=== PATIENT | female | born 1995 | race Caucasian/White ===

== ENCOUNTER 2017-06-26 19:59 | Inpatient (IN) | payer OTHER, SELFPAY ==
[2017-06-26 20:14] VITALS: BMI 23.8
[2017-06-26] MEDS: Hydrocortisone Sod Succ/PF 250 mg/2 ml Vial SLOW IVP SCH (22:55)
[2017-06-27] MEDS: Hydrocortisone Sod Succ/PF 250 mg/2 ml Vial SLOW IVP SCH ×2 (05:45→13:16)
[2017-06-27] MEDS ORDERED: Acetaminophen 325 MG TAB PO PRN (18:24)
[2017-06-28 04:19] LABS: #Lymphocytes 1.2 thou/uL (1.20-3.40); #Monocytes 0.2 thou/uL (0.11-0.59); #Neutrophils 12.6 thou/uL (1.40-6.50); %Basophils 0.1 % (0.0-1.0); %Lymphocytes 8.8 % (28.0-48.0); %Monocytes 1.1 % (0.0-4.0); Hematocrit 40.7 % (36.0-47.0); Mean Platelet Volume 8.5 fL (7.4-10.4); Red Blood Cell (RBC) Count 4.67 mill/uL (4.00-5.20)
[2017-06-28 04:34] LABS: ALT (SGPT) 37 U/L (8-55); AST (SGOT) 15 U/L (5-30); Alkaline Phosphatase 49 U/L (40-150); Anion Gap 12 mmol/L (10-20); BUN (Urea Nitrogen) 7 mg/dL (8.4-21.0); Bilirubin, Total 0.3 mg/dL (0.2-1.2); Calc. Creatinine Clearance 158 mL/min (70-130); Calcium 9.9 mg/dL (7.8-10.44); Carbon Dioxide 22 mmol/L (22-29); Chloride 108 mmol/L (98-107); Estimated GFR-MDRD Greater than 90; Globulin 2.9 g/dL (2.4-3.5); Protein, Total 6.7 g/dL (6.0-8.3)
[2017-06-28] MEDS: Promethazine HCl 25 MG/ML VIAL SLOW IVP PRN ×2 (10:03→19:02)
[2017-06-28 21:08] LABS: Troponin I Less than 0.010 ng/mL (< 0.028)
--- NOTE | 2017-06-28 23:41 | PRG ---
DATE OF SERVICE: 06/27/2017 SUBJECTIVE: Ms. Saab is a pleasant 21-year-old female, presented with the acute MS exa cerbation. She reports of having noted some improvement in her numbness after starting IV steroids, she denies any noticeable side effects on steroids. She has noted increasing headaches and nausea. She denies chest pain, palpitation, fever or chills. PHYSICAL EXAMINATION: VITAL SIGNS: Blood pressure of 124/77, pulse of 71, temperature of 98, respirations of 18, O2 sats of 100% on room air. GENERAL: Well-developed, well-nourished female, in no apparent distress. RESPIRATORY: Clear to auscultation bilaterally. CARDIOVASCULAR: Regular rate and rhythm. NEUROLOGIC: Essentially unchanged when compared to yesterday. IMPRESSION: 1. Acute multiple sclerosis exacerbation. 2. Optic neuritis. 3. Ataxia. 4. Left-sided weakness. ASSESSMENT AND PLAN: Ms. Saab is a pleasant 21-year-old female, presented with the acu te multiple sclerosis exacerbation. She is undergoing IV Solu-Medrol therapy. She has noted some i mprovement. At this time, I will continue her on IV steroids. I will give her Tylenol as needed fo r headaches and Phenergan 12.5 mg IV every 6 to 8 hours as needed for nausea.
--- NOTE | 2017-06-28 23:45 | PRG ---
DATE OF SERVICE: 06/28/2017 SUBJECTIVE: Ms. Saab presented with the acute SD exacerbation. She has noted some improvement i n her strength. She had increasing nausea today that is likely due to her . This did get better with use of promethazine. PHYSICAL EXAMINATION: VITAL SIGNS: Blood pressure of 112/73, pulse of 78, temperature of 98.1, respirations 16, O2 sat 98 % on room air. GENERAL: Well-developed, well-nourished female in no apparent distress. RESPIRATORY: Clear to auscultation bilaterally. CARDIOVASCULAR: Regular rate and rhythm. There is some irregularity in the heartbeat with extra be at noted every third beat. NEUROLOGICAL: This is essentially unchanged. LABORATORY DATA: Labs are reviewed, which included CBC and CMP, significant for WBC of 14.0, otherw ise unremarkable. IMPRESSION: 1. Acute myocardial infarction exacerbation. 2. Optic neuritis. 3. Ataxia. 4. Left-sided weakness. 5. Palpitations. Ms. Saab is a pleasant 21-year-old female with 8 weeks , presented with an acut e myocardial infarction exacerbation, she is undergoing IV steroids with Solu-Medrol treatment witho ut any complications. She has noted episodes of palpitation and on auscultation, she had extra beat every third to fourth beat. For this reason I will obtain EKG and one set of troponin. I will lyndsey n to discharge her tomorrow after the IV steroids. I have discussed with her that after discharge, we will do one day of IV steroids while she is once a month. I will also refer her to Dr. Isai Cid as an outpatient for a second opinion for her treatment of multiple sclerosis.
--- NOTE | 2017-06-29 07:16 | HP ---
DATE OF SERVICE: 06/26/2017 REASON FOR ADMISSION: Multiple sclerosis exacerbation, optic neuritis, ataxia. HISTORY OF PRESENT ILLNESS: Ms. Saab is a pleasant 21-year-old female with history of multiple sclerosis, is being admitted for further treatment of multiple sclerosis exacerbation. She had presented to my clinic on 06/24 with a complaint of 2-week history of gradual decline in her vision in the right eye as well as left eye. She also had noted increasing difficulty with walking and balance. She also had noted numbness in both upper and lower extremities as well as weakness in her left thigh. According to her boyfriend, she has been dropping objects. She also has difficulty with walking and balance and had falls on several occasions. She is also having poor coordination and depth perception. She is also 8 weeks . For this reason, she was not started on any disease modifying therapy. As her symptoms were continued to get worse, I have decided to admit her to the [facility] for 3 days of IV steroids. I have discussed with the patient initially to be done as an outpatient, which was the initial plan; however, her PCP as well as the patient did not feel safe to be done at an infusion center, and for this reason, I am admitting her for infusion therapy in the hospital. PAST MEDICAL HISTORY: Significant for multiple sclerosis, history of optic neuritis. PAST SURGICAL HISTORY: Noncontributory. SOCIAL HISTORY: She denies smoking, alcohol use, or illicit drug use. She is single, but lives with her boyfriend. CURRENT MEDICATIONS: None. ALLERGIES: No known drug allergies. FAMILY HISTORY: Noncontributory. REVIEW OF SYSTEMS: As mentioned in the HPI, otherwise negative. PHYSICAL EXAMINATION: VITAL SIGNS: Blood pressure of 125/87, pulse of 91, temperature of 98.6, respirations of 18, O2 sats of 100% on room air. GENERAL: Well-developed, well-nourished female in no apparent distress. RESPIRATORY: Clear to auscultation bilaterally. CARDIOVASCULAR: Regular rate and rhythm. NEUROLOGIC: Mental status: The patient is awake, alert, oriented x3. Speech and language: Fluent speech. Cranial nerves: Pupils are 3 mm and reactive. She has a right RAPD. Her vision in the right eye is only to finger counting, on the left eye is 20/50. Extraocular muscles are intact. No nystagmus is noted. Face is symmetric with normal facial strength. Tongue and uvula are midline. Motor exam showed 4/5 strength in the left upper extremity and left lower extremity. Sensory: Diminished sensation to pinprick in both upper and lower extremities. Deep tendon reflexes, 3+ reflexes in both upper and lower extremities that is especially more brisk on the left upper extremity. Babinski : Plantar responses are extensors bilaterally. She has a positive Romero bilaterally. Romberg is positive. Coordination, there is a dysmetria noted on [id number]. Gait: Wide-based ataxic gait. IMPRESSION: 1. Multiple sclerosis exacerbation. 2. Optic neuritis. 3. Ataxia. 4. Left-sided weakness. ASSESSMENT AND PLAN: Ms. Saab is a pleasant 21-year-old female who presented with the worsening vision in her right eye, bilateral upper and lower extremity numbness, left-sided weakness, ataxia, and worsening vision in her right eye. She is noted to be in multiple sclerosis exacerbation. She is 8 weeks . For this reason, she cannot be started on any disease modifying therapy. At this time, I have admitted her for 3 days of IV Solu- Medrol to be given 250 mg every 6 hours. I will consult physical therapy for gait and strengthening evaluation and treatment. NAYAND
[2017-06-29 08:20] VITALS: TEMP 98
[2017-06-29 12:20] VITALS: BP 111/64
--- NOTE | 2017-06-30 05:33 | DIS ---
ADMISSION DATE: 06/26/2017 DISCHARGE DATE: 06/29/2017 ADMISSION DIAGNOSES: 1. Acute multiple sclerosis exacerbation. 2. Optic neuritis. 3. Ataxia. 4. Left-sided weakness. DISCHARGE DIAGNOSES: 1. Acute multiple sclerosis exacerbation, improving. 2. Optic neuritis, improving. 3. Ataxia, improving. 4. Left-sided weakness, improving. PROCEDURES DONE DURING ADMISSION: None. CONSULTATION DURING ADMISSION: Physical therapy. BRIEF HOSPITAL COURSE: Ms. Saab is a pleasant 21-year-old 8 week female with history of multiple sclerosis, presented with the acute worsening vision, left-sided weakness, difficulty with gait and balance and numbness in both upper and lower extremities. Please review my dictated H\T\P for the details. After being admitted to the hospital, the patient was started on IV Solu-Medrol 2 50 mg q.6 hours, which she received for a total of 8 doses. She had tolerated the Solu-Medrol well up until the last 2 doses when she started complaining of chest tightness and palpitations. We had received EKG twice which showed sinus rhythm with occasional PVCs. I had consulted physical therapy who had provided their services during this hospitalization. She had noted some improvement in her vision as well as her strength of the left side; however, she continued to have difficulty with gai t imbalance. I had planned to be discharged to home. She will follow up with my clinic in [facility]. She will be referred to Dr. Isai Cid as an outpatient for second opinion for underlying MS tr eatment. I have discussed with her at length about seeing a high risk rattle leak and squeak repairer for . I have also advised that she should take folic acid 2 mg on a daily basis as well as vitami n on daily basis. DISCHARGE PLANNING: Discharge the patient to home. CONDITION: Stable. ACTIVITY: Ad haley. Patient was given a wheelchair perception for avoiding falls as she lives by her self most of the time. DIET: Regular diet. DISCHARGE FOLLOWUP: Follow up with my clinic in 4 weeks. DISPOSITION: Discharge the patient to home.
--- NOTE | 2017-08-15 09:55 | EKG ---
Test Reason : Blood Pressure : / mmHG Vent. Rate : 061 BPM Atrial Rate : 061 BPM P-R Int : 122 ms QRS Dur : 088 ms QT Int : 528 ms P-R-T Axes : -02 095 050 degrees QTc Int : 531 ms Sinus rhythm with sinus arrhythmia with occasional Premature ventricular complexes Rightward axis Nonspecific T wave abnormality Prolonged QT Abnormal ECG When compared with ECG of 28-JUN-2017 20:24, (Unconfirmed) Nonspecific T wave abnormality has replaced inverted T waves in Anterior leads QT has lengthened Confirmed by DR. Vinh OLIVARES ([id number]) on 08/15/2017 9:54:54 AM Referred By: ARTURO Confirmed By:DR. Vinh OLIVARES
--- NOTE | 2017-08-15 09:55 | EKG ---
Test Reason : STAT Blood Pressure : / mmHG Vent. Rate : 070 BPM Atrial Rate : 070 BPM P-R Int : 132 ms QRS Dur : 086 ms QT Int : 380 ms P-R-T Axes : -04 099 020 degrees QTc Int : 410 ms Sinus rhythm with sinus arrhythmia with occasional Premature ventricular complexes Rightward axis T wave abnormality, consider anterior ischemia Abnormal ECG Confirmed by DR. Vinh OLIVARES ([id number]) on 08/15/2017 9:55:15 AM Referred By: RICKI THORNTON Confirmed By:DR. Vinh OLIVARES
== END 2017-06-29 17:34 | disposition home or self-care (01) | DRG 781 ==
LOC: T4-A 19:59
PROVIDERS: ADMIT Psychiatry & Neurology Neurology; ATTEND Psychiatry & Neurology Neurology
DX: O99.351 Diseases of the nervous system complicating pregnancy, first trimester (principal); G35 Multiple sclerosis; H46.9 Unspecified optic neuritis; Z3A.08 8 weeks gestation of pregnancy
CPT/HCPCS: 36415; 80053; 84484; 85025; 93005; 93010; A4216; G8978-GP-CJ; G8979-GP-CJ; G8980-GP-CJ; J1720; J2550; J2930; J7050